=== PATIENT | female | born 1990 | race Caucasian/White ===

== ENCOUNTER 2017-08-30 10:24 | Outpatient (CLI) | payer MEDICARE, MEDICAID ==
[~2017-08-30 10:24] MED LIST: ALBU6.7H INH; BUDE10.2 INH; DEXL60CA3 PO; IBUP-1985 PO
== END 2017-08-30 23:59 | disposition home or self-care (01) ==
LOC: RAD 10:24
PROVIDERS: ATTEND Family Medicine
DX: G40.A09 Absence epileptic syndrome, not intractable, without status epilepticus (principal); J45.909 Unspecified asthma, uncomplicated; D50.9 Iron deficiency anemia, unspecified
CPT/HCPCS: 95816